=== PATIENT | female | born 1995 | race Hispanic/Latino ===

== ENCOUNTER 2018-12-21 16:46 | Inpatient (IN) | payer MEDICAID, OTHER ==
[~2018-12-21] VITALS: Ht 154.9 cm; Wt 82.6 kg
[~2018-12-21 16:46] MED LIST: PREN1COM PO
[2018-12-21 17:27] LABS: HEMATOCRIT 39.8 % (36-48); MEAN CORPUSCULAR HGB CONC 34.7 g/dL (32.0-36.0); MEAN CORPUSCULAR VOLUME 92.3 fL (80-100); NUCLEATED RED BLOOD CELLS 0.1 % (0.0-0.19); PLATELET COUNT (AUTO) 201 K/uL (130-400); RED CELL DISTRIBUTION WIDTH 13.2 % (11.0-15.5); WHITE BLOOD COUNT (AUTO) 12.3 K/uL (4.8-10.8)
[2018-12-21 17:28] LABS: APPEARANCE,URINE Turbid (CLEAR); BILIRUBIN,URINE Negative (NEGATIVE); COLOR,URINE Yellow (YELLOW); GLUCOSE, URINE (UA) Negative (NEGATIVE); KETONES,URINE Negative (NEGATIVE); LEUKOCYTE ESTERASE ,URINE Large (NEGATIVE); NITRATE,URINE Negative (NEGATIVE); OCCULT BLOOD,URINE Trace (NEGATIVE); PROTEIN,URINE Trace mg/dL (NEGATIVE); UROBILINOGEN,URINE 0.2 mg/dL (0.2-1.0)
[2018-12-21] MEDS ORDERED: AMPICILLIN 2GM+NS 100ML 100 ML IV SCH (17:30)
[2018-12-21] MEDS: LACTATED RINGERS 1000ML 1,000 ML IV PRN (17:30)
[2018-12-21 17:35] LABS: BACTERIA,URINE Few /HPF (None Seen); SQUAMOUS EPITHELIAL CELL,UR Many /HPF (0-2)
[2018-12-21 17:36] LABS: MUCUS,URINE Few LPF (None Seen)
[2018-12-21] MEDS: AMPICILLIN 1GM+NS 50ML 50 ML IV SCH (21:50)
[2018-12-21 23:44] VITALS: BP 128/65
[2018-12-21] MEDS ORDERED: PREN1TAB80 PO (23:53)
[2018-12-22] MEDS: AMPICILLIN 1GM+NS 50ML 50 ML IV SCH (02:04)
[2018-12-22] MEDS: LACTATED RINGERS 1000ML 1,000 ML IV PRN (02:04)
[2018-12-22] MEDS ORDERED: OXYTOCIN 10 USP UNITS/ML 20 UNIT in LACTATED RINGERS 1000ML 1,000 ML IV SCH (04:00)
[2018-12-22] MEDS ORDERED: OXYTOCIN-LR 20 UNITS/1000 ML 1,000 ML IV ONE ×2 (04:00→08:52)
[2018-12-22] MEDS ORDERED: PROMETHAZINE HCL 25 MG/ML 1ML AMPULE IM SCH (07:30)
[2018-12-22] MEDS ORDERED: MEPERIDINE-PF 50 MG/ML SYG IVP SCH (07:30)
[2018-12-22] MEDS ORDERED: MEPERIDINE-PF 50 MG/ML SYG ONE (07:36)
[2018-12-22] MEDS ORDERED: LIDOCAINE HCL 1% 20 ML VIAL ONE (07:45)
[2018-12-22] MEDS ORDERED: DIPH,PERTUSS(ACELL),TET VAC/PF 0.5 ML VIAL IM PRN (08:15)
[2018-12-22] MEDS ORDERED: ACETAMINOPHEN 325 MG TAB PO PRN (08:15)
[2018-12-22] MEDS ORDERED: WITCH HAZEL 1 PAD TP PRN (08:15)
[2018-12-22] MEDS ORDERED: BENZOCAINE/LANOLIN/ALOE VERA 60 ML AEROSOL TP PRN (08:15)
[2018-12-22] MEDS ORDERED: LANOLIN 30GM OINTMENT TP PRN (08:15)
[2018-12-22] MEDS ORDERED: ACETAMINOPHEN-CODEINE 300/30MG TAB PO PRN (08:15)
[2018-12-22] MEDS ORDERED: MEASLES/MUMPS/RUBELLA VACCINE, LIVE 0.5 ML/VIAL SQ PRN (08:15)
[2018-12-22 10:01] VITALS: BP 119/74
[2018-12-22] MEDS: DOCUSATE SODIUM 100 MG CAP PO SCH ×2 (10:05→20:59)
--- NOTE | 2018-12-22 10:05 | NUR ---
PATIENT ARRIVED FROM L&D VIA WHEELCHAIR. FUNDUS FIRM,BLEEDING SCANT. C/O PAIN TO LOWER ABDOMEN (CRAMPING) 2/10 BABY LATCHED TO RIGHT BREAST. ADVISED PT TO CALL FOR ASSISTANCE WHEN NEEDING TO AMBULATE FOR THE FIRST TIME.
[2018-12-22] MEDS: IBUPROFEN 600 MG TABLET PO PRN ×2 (10:06→18:33)
--- NOTE | 2018-12-22 11:30 | NUR ---
ASSISTED PATIENT TO RESTROOM ACCOMPANIED BY MAKEDA GAONA.500ML URINE VOIDED. PT AMBULATED WITHOUT DIFFICULTY. CALL LIGHT LEFT IN REACH. ADVISED PATIENT TO CALL WITH ANY NEEDS OR CONCERNS.
[2018-12-22 11:31] VITALS: BP 128/67
[2018-12-22 16:11] VITALS: BP 129/82
[2018-12-22] MEDS ORDERED: FLU VACC QS2019-20 36MOS UP/PF 60 MCG/0.5 ML ML IM ONE (18:15)
[2018-12-22 19:14] VITALS: BP 117/57
[2018-12-22 23:17] VITALS: BP 115/52
[2018-12-23] MEDS: IBUPROFEN 600 MG TABLET PO PRN ×2 (00:48→09:19)
[2018-12-23 03:41] VITALS: BP 120/77
[2018-12-23] MEDS: AMPICILLIN 1GM+NS 50ML 50 ML IV SCH (05:00)
[2018-12-23 05:24] LABS: HEMATOCRIT 32.3 % (36-48); MEAN CORPUSCULAR HEMOGLOBIN 32.2 pg (27.0-33.0); MEAN CORPUSCULAR HGB CONC 34.4 g/dL (32.0-36.0); MEAN CORPUSCULAR VOLUME 93.5 fL (80-100); PLATELET COUNT (AUTO) 171 K/uL (130-400); RED BLOOD CELL COUNT(AUTO) 3.46 MIL/uL (4.00-5.50); RED CELL DISTRIBUTION WIDTH 12.9 % (11.0-15.5); WHITE BLOOD COUNT (AUTO) 10.6 K/uL (4.8-10.8)
[2018-12-23 07:40] VITALS: BP 113/59
[2018-12-23 08:12] LABS: HEPATITIS Bs ANTIGEN SCREEN P Negative (Negative)
[2018-12-23] MEDS: DOCUSATE SODIUM 100 MG CAP PO SCH (09:18)
--- NOTE | 2018-12-23 13:20 | NUR ---
PATIENT LEFT UNIT VIA WHEELCHAIR WITH BABY IN ARMS ACCOMPANIED BY SIGNIFICANT OTHER. PERSONAL VEHICLE USED FOR TRANSPORTATION. BABY SECURE IN CARSEAT.
== END 2018-12-23 13:20 | disposition home or self-care (01) | DRG 807 ==
LOC: LDH 16:46 → OBSVTOIN 16:46 → WSH 12-22 09:57
PROVIDERS: ADMIT Obstetrics & Gynecology; ATTEND Obstetrics & Gynecology
PROC: 10E0XZZ Delivery of Products of Conception, External Approach (ICD-10-PCS; principal; 2018-12-21)
PROC: 0HQ9XZZ Repair Perineum Skin, External Approach (ICD-10-PCS; 2018-12-21)
PROC: 00HU33Z Insertion of Infusion Device into Spinal Canal, Percutaneous Approach (ICD-10-PCS; 2018-12-21)
PROC: 10907ZC Drainage of Amniotic Fluid, Therapeutic from Products of Conception, Via Natural or Artificial Opening (ICD-10-PCS; 2018-12-21)
PROC: 3E02340 Introduction of Influenza Vaccine into Muscle, Percutaneous Approach (ICD-10-PCS; 2018-12-21)
PROC: 3E0R3BZ Introduction of Anesthetic Agent into Spinal Canal, Percutaneous Approach (ICD-10-PCS; 2018-12-21)
PROC: 3E0234Z Introduction of Serum, Toxoid and Vaccine into Muscle, Percutaneous Approach (ICD-10-PCS; 2018-12-21)
PROC: 3E0134Z Introduction of Serum, Toxoid and Vaccine into Subcutaneous Tissue, Percutaneous Approach (ICD-10-PCS; 2018-12-21)
DX: O99.824 Streptococcus B carrier state complicating childbirth (principal); Z37.0 Single live birth; O70.0 First degree perineal laceration during delivery; Z23 Encounter for immunization; Z3A.39 39 weeks gestation of pregnancy
CPT/HCPCS: 36415; 81001; 85027; 86592; 86850; 86900; 86901; 87340; A4351; G0378; J0290; J2175; J2590; J7120